=== PATIENT | male | born 1980 | race Caucasian/White ===

== ENCOUNTER 2018-05-23 16:05 | Emergency (ER) | payer SELFPAY ==
[2018-05-23 16:34] LABS: ADD MAN DIFF? NO
[2018-05-23 16:38] LABS: BASO % 1 % (0-3); EOS # 0.1 x10^3/uL (0.0-0.7); EOS % 1 % (0-3); HEMATOCRIT 47.9 % (39.0-53.0); HEMOGLOBIN 16.2 g/dL (13.0-17.5); LYMPH # 2.6 x10^3/uL (1.0-4.8); LYMPH % 41 % (24-48); MEAN CORPUSCULAR HEMOGLOBIN 28 pg (25-35); MEAN CORPUSCULAR HGB CONC 34 g/dL (31-37); MEAN CORPUSCULAR VOLUME 84 fL (79-100); MONO # 0.4 x10^3/uL (0.0-1.1); MONO % 6 % (0-9); NEUT # 3.2 x10^3uL (1.8-7.7); NEUT % 51 % (31-73); PLATELET COUNT 283 x10^3/uL (140-400); RED CELL DISTRIBUTION WIDTH 15.9 % (11.5-14.5); WHITE BLOOD COUNT 6.3 x10^3/uL (4.0-11.0)
[2018-05-23] MEDS: ONDANSETRON PF 4 MG/2 ML VIAL. IV (16:47)
[2018-05-23] MEDS: IV NORMAL SALINE 1000ML BAG 1,000 ML IV ×2 (16:47→17:18)
[2018-05-23 16:50] LABS: ANION GAP 14 (6-14); BLOOD UREA NITROGEN 8 mg/dL (8-26); BUN/CREATININE RATIO 9 (6-20); CARBON DIOXIDE 27 mmol/L (21-32); CHLORIDE 104 mmol/L (98-107); CREATININE 0.9 mg/dL (0.7-1.3); GFR 94.4; GLUCOSE 109 mg/dL (70-99); POTASSIUM 3.5 mmol/L (3.5-5.1); SODIUM 145 mmol/L (136-145)
[2018-05-23 16:54] LABS: ALBUMIN 4.1 g/dL (3.4-5.0); ALBUMIN/GLOBULIN RATIO 1.1 (1.0-1.7); ALK PHOS 122 U/L (46-116); ALT (SGPT) 27 U/L (16-63); AST (SGOT) 28 U/L (15-37); TOTAL BILIRUBIN 0.2 mg/dL (0.2-1.0)
[2018-05-23] MEDS ORDERED: IOHEXOL 300 MG/ML 100ML VIAL. (16:57)
[2018-05-23 16:58] LABS: ACETAMIN < 2 mcg/ml (10-30); ETHANOL 342 mg/dL (0-10); SALIC < 2.8 mg/dL (2.8-20.0)
[2018-05-23] MEDS ORDERED: CONTRAST GIVEN. MC (17:00)
[2018-05-23 17:01] LABS: TROPONINI < 0.017 ng/mL (0.000-0.055)
[2018-05-23] MEDS: IOHEXOL 300 MG/ML 100ML VIAL. IV (17:04)
[2018-05-23 17:52] LABS: BILIRUBIN,URINE NEGATIVE (NEG); CLARITY,URINE CLEAR; COLOR,URINE YELLOW; GLUCOSE,URINE NEGATIVE (NEG); NITRITE,URINE NEGATIVE (NEG); PROTEIN,URINE NEGATIVE (NEG-TRACE)
[2018-05-23 18:02] LABS: BACTERIA,URINE 0 /HPF (0-FEW); RBC,URINE 0 /HPF (0-2); SQUAMOUS EPITHELIAL CELL,UR OCC /LPF; WBC,URINE 0 /HPF (0-4)
[2018-05-23 18:03] LABS: AMPHETAMINE/METHAMPHETAMINE NEG (NEG); BARBITURATES NEG (NEG); BENZODIAZEPINES NEG (NEG); CANNABINOIDS POS (NEG); COCAINE NEG (NEG); ETHANOL, URINE POS (NEG); METHADONE NEG (NEG); OPIATES NEG (NEG); PHENCYCLIDINE NEG (NEG)
== END 2018-05-23 20:35 | disposition short-term general hospital (02) ==
LOC: ER 20:35
DX: F10.129 Alcohol abuse with intoxication, unspecified (principal)
CPT/HCPCS: 36415; 71045; 74177; 80053; 80307; 80329; 81001; 84484; 85025; 93005; 96361; 96374; 99285-25; G0480; G6039; J2405; J7030; Q9967